=== PATIENT | female | born 1990 ===

== ENCOUNTER 2022-01-28 10:17 | Emergency (ER) | payer SELFPAY ==
[2022-01-28 10:35] VITALS: BP 95/60
--- NOTE | 2022-01-28 12:02 | ED Elopement Review ---
ED Pt Elopement review - Results review Lab results: Attempted to see the patient multiple times and also call for the name in the waiting room to no avail. Thus the patient eloped before being evaluated.
== END 2022-01-28 12:01 | disposition home or self-care (01) ==
LOC: ED 10:17
DX: Z00.00 Encounter for general adult medical examination without abnormal findings (principal); Z53.21 Procedure and treatment not carried out due to patient leaving prior to being seen by health care provider